=== PATIENT | female | born 1990 | race Hispanic/Latino ===

== ENCOUNTER 2019-07-15 18:18 | Emergency (ER) | payer MEDICAID, OTHER ==
[~2019-07-15 18:18] MED LIST: IBUP-2070 PO; PNV1TABL77 PO
[2019-07-15] MEDS ORDERED: NAPROXEN 500 MG TABLET ONE (18:30)
== END 2019-07-15 19:41 | disposition home or self-care (01) ==
LOC: EDH 18:18
DX: S82.832A Other fracture of upper and lower end of left fibula, initial encounter for closed fracture (principal); S82.302A Unspecified fracture of lower end of left tibia, initial encounter for closed fracture; X50.1XXA Overexertion from prolonged static or awkward postures, initial encounter; Y93.44 Activity, trampolining; Y92.89 Other specified places as the place of occurrence of the external cause; Y99.8 Other external cause status
CPT/HCPCS: 73610